=== PATIENT | female | born 2000 | race Caucasian/White ===

== ENCOUNTER 2021-07-12 10:18 | Outpatient (CLI) | payer OTHER, BC ==
[~2021-07-12] VITALS: Ht 160 cm; Wt 106.1 kg
== END 2021-07-12 15:55 | disposition home or self-care (01) ==
LOC: GENOP 10:18
DX: O21.2 Late vomiting of pregnancy (principal); O36.8120 Decreased fetal movements, second trimester, not applicable or unspecified; O99.282 Endocrine, nutritional and metabolic diseases complicating pregnancy, second trimester; E28.2 Polycystic ovarian syndrome; Z3A.21 21 weeks gestation of pregnancy
CPT/HCPCS: 81001; 96360; 96361; 96367; 96374; J0696; J2405; J7120

== ENCOUNTER 2021-11-04 20:09 | Outpatient (CLI) | payer BC | END 2021-11-04 21:38 | disposition home or self-care (01) | LOC: GENOP 20:09 | DX: O36.8130 Decreased fetal movements, third trimester, not applicable or unspecified (principal); Z3A.37 37 weeks gestation of pregnancy | CPT/HCPCS: 59025 ==

== ENCOUNTER 2021-11-14 16:33 | Inpatient (IN) | payer BC ==
[~2021-11-14] VITALS: Ht 160 cm; Wt 121.1 kg
[2021-11-14] MEDS ORDERED: ALLERGY RELIEF10 MG PO (17:51)
[2021-11-14] MEDS ORDERED: EXPECTA PRENAT1 EACH PO (17:55)
[2021-11-14] MEDS ORDERED: FOLIC ACID 1 MG1 MG PO (17:55)
[2021-11-14 18:08] LABS: HEMOGLOBIN 13.9 gm/dl (12.3-15.3); RED BLOOD COUNT 4.34 M/UL (4.00-5.10)
[2021-11-16] MEDS ORDERED: DOCUSATE SODIU250 MG PO (22:07)
[2021-11-16] MEDS ORDERED: IBUPROFEN600 MG PO (22:07)
[2021-11-16] MEDS ORDERED: HYDROCODONE-AC1 EACH PO (22:07)
== END 2021-11-18 12:25 | disposition home or self-care (01) | DRG 788 ==
LOC: GENOP 16:33 → OB 16:51
PROVIDERS: Obstetrics & Gynecology; ADMIT Obstetrics & Gynecology
PROC: 10H073Z Insertion of Monitoring Electrode into Products of Conception, Via Natural or Artificial Opening (ICD-10-PCS; 2021-11-15)
PROC: 10H07YZ Insertion of Other Device into Products of Conception, Via Natural or Artificial Opening (ICD-10-PCS; 2021-11-15)
PROC: 10907ZC Drainage of Amniotic Fluid, Therapeutic from Products of Conception, Via Natural or Artificial Opening (ICD-10-PCS; 2021-11-15)
PROC: 3E0234Z Introduction of Serum, Toxoid and Vaccine into Muscle, Percutaneous Approach (ICD-10-PCS; 2021-11-16)
PROC: 10D00Z1 Extraction of Products of Conception, Low, Open Approach (ICD-10-PCS; principal; 2021-11-16 19:47)
DX: O34.83 Maternal care for other abnormalities of pelvic organs, third trimester (principal); Z37.0 Single live birth; N83.209 Unspecified ovarian cyst, unspecified side; Z3A.39 39 weeks gestation of pregnancy; Z83.3 Family history of diabetes mellitus; Z82.49 Family history of ischemic heart disease and other diseases of the circulatory system; Z83.49 Family history of other endocrine, nutritional and metabolic diseases; O69.81X0 Labor and delivery complicated by cord around neck, without compression, not applicable or unspecified; Z23 Encounter for immunization
CPT/HCPCS: 36415; 81001; 82800; 85014; 85018; 85025; 90471; 90715; C9113; J0595; J0690; J1170; J1200; J2370; J2405; J2590; J2704